=== PATIENT | male | born 1985 | race Caucasian/White ===

== ENCOUNTER 2017-11-23 15:00 | Emergency (ER) | END 2017-11-23 18:51 | disposition home or self-care (01) ==

== ENCOUNTER 2018-07-13 22:36 | Emergency (ER) | payer MEDICARE, OTHER ==
[~2018-07-13] VITALS: Ht 172.7 cm; Wt 79.0 kg
[~2018-07-13 22:36] MED LIST: ATOM100C; BENZ2TAB7; CHLO200T8; CLINDAMYCIN; CLON0.2T12; DIVA500T34; FLUT1DIS23; GEMF600T; QUET300T5; TOPI100T
[2018-07-13 22:40] VITALS: Ht 172.7 cm; Wt 79.0 kg
[2018-07-14] MEDS ORDERED: IBUPROFEN 200 MG TAB PO ONE (02:00)
[2018-07-14] MEDS ORDERED: ALBUTEROL 0.083% (NEB) 2.5 MG/3 ML AMP HHN STA (03:02)
[2018-07-14] MEDS ORDERED: IBUP-1561 PO (03:14)
[2018-07-14] MEDS ORDERED: AZIT500T3 PO (03:14)
--- NOTE | 2018-07-14 03:25 | ERD ---
ER Documentation Chief Complaint Chief Complaint INTERMITTENT MILD CP AT 1800, NO HX OF CARDIAC HPI This is a 32-year-old male patient presents emergency room with complaint of midsternal mild chest pain starting at 1800 tonight. No nausea, no diaphoresis. No cardiac history. History significant for asthma, no wheezing, no cough. No fever. Patient had been carrying heavy grocery bags this evening when chest pain started. ROS All systems reviewed and are negative except as per history of present illness. Medications Home Meds Active Scripts Ibuprofen* (Motrin*) 400 Mg Tab, 400 MG PO Q6, #30 TAB Prov:BELLA RIVERA NP 07/14/18 Azithromycin* (Zithromax*) 500 Mg Tablet, 500 MG PO DAILY for 3 Days, TAB Prov:BELLA RIVERA B[employer]K DELIVERY DRIVER 07/14/18 Reported Medications Clonidine Hcl* (Catapres*) 0.2 Mg Tablet 08/30/10 Chlorpromazine Hcl* (Chlorpromazine Hcl*) 200 Mg Tablet 08/30/10 Quetiapine Fumarate* (Seroquel* XR) 300 Mg Tab.sr.24h 08/30/10 [Clindamycin] No Conflict Check 08/30/10 Divalproex Sodium (Depakote Er) 500 Mg Tab.sr.24h 08/30/10 Fluticasone/Salmeterol (Advair 250-50 Diskus) 1 Disk W/Dev Disk.w.dev 08/30/10 Topiramate* (Topamax*) 100 Mg Tablet 08/30/10 Atomoxetine Hcl (Strattera) 100 Mg Capsule 08/30/10 Benztropine Mesylate* (Benztropine Mesylate*) 2 Mg Tablet 08/30/10 Gemfibrozil* (Lopid*) 600 Mg Tablet 08/30/10 Allergies Allergies: Uncoded Allergies: NONE (Allergy, Mild, 08/30/10) PMhx/Soc History of Surgery: No Anesthesia Reaction: No Hx Respiratory Disorders: Yes (Asthma) Hx Cardiac Disorders: No Hx Psychiatric Problems: Yes (AUTISM,MILD MENTAL RETARDATION,BIPOLAR UMPULSE CONTROL DISORDER) Hx Miscellaneous Medical Probl: No Hx Alcohol Use: No Hx Substance Use: No Hx Tobacco Use: No Smoking Status: Never smoker FmHx Family History: No diabetes, No coronary disease, No other Physical Exam Vitals Vital Signs Date Temp Pulse Resp B/P (MAP) Pulse Ox O2 O2 Flow FiO2 Time Delivery Rate 07/13/18 98.3 100 17 112/83 92 22:40 (93) Physical Exam Const: No acute distress Head: Atraumatic Eyes: Normal Conjunctiva, PERRL ENT: Normal External Ears, Nose and Mouth. Oropharynx pink, moist, no petechiae, no lesions. No exudate Neck: Full range of motion. No meningismus. No lymphadenopathy, no thyromegaly Resp: Diminished lung sounds in left lobes. No wheezing, no rhonchi, no rales. Creased work of breathing, no retractions. Cardio: Regular rate and rhythm, no murmurs Abd: Soft, non tender, non distended. Normal bowel sounds. No h epatosplenomegaly. Skin: No petechiae or rashes Back: No midline or flank tenderness Ext: No cyanosis, or edema Neur: Awake and alert Psych: Normal Mood and Affect Results 24 hrs Current Medications Medications Dose Sig/Cuca Start Time Status Last (Trade) Ordered Route PRN Stop Time Admin Dose Reason Admin Ibuprofen 400 mg ONCE ONCE 07/14/18 DC 07/14/18 (Motrin) PO 02:00 02:28 07/14/18 02:01 Ceftriaxone 1 gm ONCE ONCE 07/14/18 Sodium IM 03:30 (Rocephin) 07/14/18 03:31 Albuterol 2.5 mg ONCE STAT 07/14/18 DC (Proventil HHN 03:02 0.083% (Neb)) 07/14/18 03:05 Procedures/MDM This is a 32-year-old male patient presents emergency room with mild chest pain. ED COURSE: The patient was stable throughout ED course. I kept the patient and caregiver informed of Diagnostic imaging results throughout the ED course. EKG: Read by Dr. Lopez, attending physician. EKG shows normal sinus rhythm at a rate of 103 bpm. No arrhythmias, acute ST elevations, OH 132 ms, nonspecific T wave abnormality. DIAGNOSTIC IMAGING: Read by radiologist. Hypoventilatory chest with patchy increased density at the bases may all represent atelectasis however rule out acute infiltrates, no congestive heart failure. No effusions or pneumothorax. PROCEDURES: Breathing treatment MEDICATIONS GIVEN: Albuterol, Rocephin, ibuprofen Patient tolerated medication well with no adverse reactions. Patient reported improvement in pain. MDM: Patient case discussed with Dr. Lopez. Considering patient's oxygen saturation of 92% and continued complaint of substernal chest pain and x-ray exam, patient will be treated for a bacterial bronchitis. The patient is clinically well appearing and stable. Symptoms are not suggestive of cardiac ischemia, pulmonary embolus, aortic dissection, or other serious etiology. These diagnoses have been considered and excluded clinically and with additional diagnostic studies as indicated. Nonetheless, it is understood by both the patient and provider that no clinical or diagnostic assessment can entirely exclude such diseases. Chest pain most likely due to patient's hypoventilatory chest condition, antibiotics initiated today. Bowie and caregiver instructed on use of antibiotics and close follow-up. Patient has albuterol inhaler prescribed for his asthma with understanding of indications and use. Chest pain precautions have been given and the patient has been advised to return for worsening symptoms or any concerns. DISPOSITION: The patient has been discharge home to follow-up with community physician. Departure Diagnosis: Primary Impression: Acute bacterial bronchitis Condition: Stable Patient Instructions: Bronchitis, Antiobiotic Treatment (Adult) Referrals: [facility] YOU HAVE RECEIVED A MEDICAL SCREENING EXAM AND THE RESULTS INDICATE THAT YOU DO NOT HAVE A CONDITION THAT REQUIRES URGENT TREATMENT IN THE EMERGENCY DEPARTMENT. FURTHER EVALUATION AND TREATMENT OF YOUR CONDITION CAN WAIT UNTIL YOU ARE SEEN IN YOUR DOCTORS OFFICE WITHIN THE NEXT 1-2 DAYS. IT IS YOUR RESPONSIBILITY TO MAKE AN APPOINTMENT FOR FOLOW-UP CARE. IF YOU HAVE A PRIMARY DOCTOR --you should call your primary doctor and schedule an appointment IF YOU DO NOT HAVE A PRIMARY DOCTOR YOU CAN CALL OUR PHYSICIAN REFERRAL HOTLINE AT IF YOU CAN NOT AFFORD TO SEE A PHYSICIAN YOU CAN CHOSE FROM THE FOLLOWING [facility] [address] [facility] [address] [facility] [address] [facility] [address] [facility] [address] [facility]. [facility]. [address] Additional Instructions: Thank you very much for allowing us to participate in your care. Your health and safety is our top priority at [facility]. Call your primary care doctor TOMORROW for an appointment during the next 2-4 days and bring all the information and medications prescribed. Have prescriptions filled and follow precisely the directions on the label. If the symptoms get worse and your provider is unavailable, return to the Emergency Department immediately. COMPLETE ENTIRE COURSE OF ANTIBIOTICS. INCREASE HYDRATION TO 1-2 L/DAY. USE IBUPROFEN FOR DISCOMFORT. FOLLOW-UP WITH YOUR DOCTOR IN THE NEXT 4-5 DAYS FOR REEVALUATION. BELLA RIVERA NP July 14, 2018 03:25
[2018-07-14] MEDS ORDERED: CEFTRIAXONE 1 GM INJ IM ONE (03:30)
[2018-07-14 04:14] VITALS: BP 113/76; PULSE 84; RESP 17
== END 2018-07-14 04:14 | disposition home or self-care (01) ==
LOC: FTE 22:36
DX: J20.8 Acute bronchitis due to other specified organisms (principal); J45.909 Unspecified asthma, uncomplicated
CPT/HCPCS: 71046; 93005; 94664; 96372; 99284; J0696

== ENCOUNTER 2018-10-27 12:51 | Emergency (ER) | payer MEDICARE, OTHER ==
[~2018-10-27] VITALS: Ht 167.6 cm; Wt 77.3 kg
[~2018-10-27 12:51] MED LIST changes: +ACET500C5 PO; +AZIT500T3 PO; +IBUP-1561 PO; +IBUP800T48 PO
[2018-10-27 13:00] VITALS: BP 127/83; PULSE 110; RESP 18; Ht 167.6 cm; Wt 77.3 kg
== END 2018-10-27 14:00 | disposition home or self-care (01) ==
LOC: E/R 12:51
DX: R07.89 Other chest pain (principal); J45.909 Unspecified asthma, uncomplicated; F84.0 Autistic disorder
CPT/HCPCS: 71045

== ENCOUNTER 2018-10-29 10:23 | Emergency (ER) | payer MEDICARE, OTHER ==
[~2018-10-29] VITALS: Ht 167.6 cm; Wt 77.0 kg
[2018-10-29 10:25] VITALS: BP 145/78; PULSE 98; RESP 18; Ht 167.6 cm; Wt 77.0 kg
[2018-10-29] MEDS ORDERED: ALBUTEROL 0.083% (NEB) 2.5 MG/3 ML AMP NEB STA (11:29)
[2018-10-29] MEDS ORDERED: IPRATROPIUM (NEB) 0.5 MG/2.5 ML AMP NEB STA (11:29)
[2018-10-29] MEDS ORDERED: IBUPROFEN 800 MG TAB PO ONE (11:30)
[2018-10-29] MEDS ORDERED: DEXAMETHASONE 4 MG TAB PO ONE (11:30)
== END 2018-10-29 11:52 | disposition home or self-care (01) ==
LOC: E/R 10:23
DX: R07.89 Other chest pain (principal); J45.909 Unspecified asthma, uncomplicated
CPT/HCPCS: 93005; 94664

== ENCOUNTER 2018-11-15 11:17 | Emergency (ER) | payer MEDICARE, OTHER ==
[~2018-11-15] VITALS: Ht 170.2 cm; Wt 74.0 kg
[2018-11-15 11:32] VITALS: Ht 170.2 cm; Wt 74.0 kg
[2018-11-15] MEDS ORDERED: ACETAMINOPHEN 325 MG TAB PO ONE (14:00)
[2018-11-15 14:37] VITALS: BP 112/67; PULSE 81; RESP 18
== END 2018-11-15 14:37 | disposition home or self-care (01) ==
LOC: FTE 11:17
DX: R51 Headache (principal); J45.909 Unspecified asthma, uncomplicated
CPT/HCPCS: 71045